=== PATIENT | male | born 1950 | race Caucasian/White ===

== ENCOUNTER → 2017-04-30 | Day surgery (SDC) | payer BC, MEDICARE ==
[2017-04-24 10:22] LABS: HEMATOCRIT 45.5 % (37.9-51.0); HEMOGLOBIN 15.6 g/dL (13.5-17.0); MEAN CORPUSCULAR HEMOGLOBIN 29.2 pg (27.0-33.4); MEAN CORPUSCULAR HGB CONC 34.2 g/dL (32.0-36.0); MEAN CORPUSCULAR VOLUME 85 fl (80-97); PLATELET COUNT 185 10^3/uL (150-450); RED BLOOD COUNT 5.34 10^6/uL (4.35-5.55); RED CELL DISTRIBUTION WIDTH 14.4 % (11.5-14.0); WHITE BLOOD COUNT 5.5 10^3/uL (4.0-10.5)
[2017-04-24 10:48] LABS: ANION GAP 11 (5-19); BLOOD UREA NITROGEN 22 mg/dL (7-20); CALCIUM 10.6 mg/dL (8.4-10.2); CARBON DIOXIDE 29 mmol/L (22-30); CHLORIDE 103 mmol/L (98-107); GLUCOSE 97 mg/dL (75-110); POTASSIUM 4.2 mmol/L (3.6-5.0); SODIUM 142.6 mmol/L (137-145)
--- NOTE | 2017-04-24 22:52 | EKG REPORT ---
SEVERITY:- ABNORMAL ECG - SINUS RHYTHM LEFT VENTRICULAR HYPERTROPHY : Confirmed by: Miguel Garza 24-Apr-2017 22:51:56
[~2017-04-30] MED LIST: ACETAMINOPHEN 100 ML IV ONE; BUPIVACAINE HCL 0.25 % INJ/PF (2.5 MG/1 ML) 30 ML VIAL ONE; CEFAZOLIN 1 GM/D5W RTU 1 GM/50 ML RTUPB IV PRN; DEXAMETHASONE SOD PHOSPHATE INJ 4 MG/1 ML VIAL ONE; DIPHENHYDRAMINE HCL 50 MG/ML VIAL IV PRN; EPHEDRINE SULFATE INJ 50 MG/1 ML AMPULE ONE; FENTANYL CITRATE INJ/PF 100 MCG/2 ML AMPUL IV PRN; FENTANYL CITRATE INJ/PF 250 MCG/5 ML AMPULE ONE; GLYCOPYRROLATE INJ 0.4 MG/2 ML VIAL ONE; KETOROLAC TROMETHAMINE 60 MG/2 ML SDV ONE; LACTATED RINGERS 1000 ML IV PRN; LIDOCAINE 0.5% INJ-PF (5 MG/ML) 50 ML SDV SUBCUT PRN; LIDOCAINE 2% INJ-PF (20 MG/ML) 2 ML AMPUL ONE; MEPERIDINE HCL/PF INJ 25 MG/1 ML DISP.SYRIN IV PRN; METOCLOPRAMIDE HCL INJ/PF 10 MG/2 ML SDV ONE; MIDAZOLAM 2 MG/2 ML INJ ONE; MORPHINE SULFATE 10 MG/ML INJ IV PRN; NEOSTIGMINE METHYLSULFATE 10 MG/10 ML VIAL ONE; ONDANSETRON HCL INJ/PF 4 MG/2 ML SDV IV PRN; ONDANSETRON HCL INJ/PF 4 MG/2 ML SDV ONE; OXYCODONE-ACETAMINOPHEN 5-325 MG TABLET PO PRN; PROMETHAZINE HCL INJ 25 MG/1 ML VIAL IV PRN; PROPOFOL INJ 200 MG/20 ML VIAL IV ONE; ROCURONIUM BROMIDE INJ 50 MG/5 ML VIAL IV ONE; SUCCINYLCHOLINE CHLORIDE INJ 200 MG/10 ML VIAL ONE
--- NOTE | 2017-04-30 11:28 | PDOC DISCHARGE SUMMARY ---
Discharge Summary (SDC) - Discharge Final Diagnosis: Umbilical hernia Date of Surgery: 04/30/17 Discharge Date: 04/30/17 Condition: Stable Treatment or Instructions: [facility] [address] [place] [id number] Discharge Instructions: Laparoscopic Surgery 1. General Information: a. DO NOT DRIVE a car or operate dangerous machinery for 3-4 days. b. DO NOT consume alcohol, tranquilizers, sleeping medications or any non- prescribed medications for 24 hours unless approved by your doctor or as long as taking narcotic prescription medications. c. DO NOT make important decisions or sign any important papers for the first 24 hours after surgery. d. When discharged home the same day of surgery have a responsible person with you for the first night. 2. Activity Restrictions:8 weeks. a. NO heavy lifting, straining abdominal muscles, bending over a lot, yard work, house work, or sports for 2 weeks. No lifting over 20lbs for [address] for 3-4 days. c. It is fine to go for walks, up and down steps, ride in a car. d. Elevate your head when sleeping/resting. 3. Treatment: a. You may shower 48 hours after surgery, no baths or swimming for 2 weeks. Remove band-aids or dressings before shower but leave paper strips (steri-strips ) on the skin to fall off on their own. If still on at postoperative visit they will be removed then. b. Drainage of fluid or blood is not unusual from an incision. If occurs, you can clean with peroxide and cotton ball daily and cover with dry gauze until the wound seals. c. If a lot of bleeding occurs, you can hold pressure with a gauze or cloth over the site for 10 minutes and it will usually stop. If bleeding continues you will need to call for possible evaluation in office or emergency room. 4. Medications: a. _Toradol__ may be taken for pain as needed, one tablet every 6 hours. S b. You should resume all normal medications unless a change is specified by your doctors. 5. Diet: Begin with clear liquids and may progress to your normal diet if not nauseated. No high fat, high protein foods the day of surgery. 6. The following may occur after laparoscopic surgery: a. Shoulder or upper back ache from retained gas that should resolve in 1-2 days b. Soreness and bruising at incision sites will resolve with time. c. Scrotal swelling (labia in women) and bruising is often seen after hernia surgery. d. Sore throat e. Fatigue may last days to weeks. f. Difficulty urinating may occur and may need to come into emergency room for urinary catheter placement. 7. Notify Physician If: a. Worsening or pain not improved with pain medication b. Persistent nausea and vomiting c. Fever above 101 d. Persistent bleeding or swelling at operative site e. Unable to urinate and uncomfortable bladder 6-8 hours after surgery 8..Follow Up Care: a. Schedule a follow up appointment with your doctor for 2 weeks. In the event of any postoperative problems or questions or you may call the office during business hours or the On-Call physician evenings and weekends at [facility]. [facility] I understand the instructions for my postoperative care as described above and a copy has been given to me. Patient/Significant Other Witness Date Prescriptions: Ketorolac Tromethamine [Toradol 10 mg Tablet] 10 mg PO Q6HP PRN #25 tablet PRN Reason: Referrals: COLLEEN WATERS MD [Primary Care Provider] - Discharge Activity: No Lifting Over 10 Pounds, No Lifting/Push/Pulling, Walk Frequently Report the Following to Your Physician Immediately: Nausea, Vomiting, Increase in Pain, Fever over 101 Degrees, Drainage-Foul Smelling
--- NOTE | 2017-04-30 11:30 | Operative Report ---
Operative Report DATE OF SURGERY: 04/30/17 PREOPERATIVE DIAGNOSIS: Umbilical hernia POSTOPERATIVE DIAGNOSIS: Same OPERATION: Laparoscopic primary closure of umbilical hernia with on-lay Parietex 9 cm polypropylene mesh reinforcement SURGEON: LAWRENCE OSWALD PARKING ASSISTANT: BHAKTI ENRIQUEZ ANESTHESIA: GA TISSUE REMOVED OR ALTERED: none COMPLICATIONS: none ESTIMATED BLOOD LOSS: scant INTRAOPERATIVE FINDINGS: see below PROCEDURE: The patient was taken to the operating room where general anesthesia was induced. Arms were abducted, the abdomen exposed, prepped and draped sterile fashion. Instrumentation set up for laparoscopic hernia repair the abdominal wall. Skin was anesthetized with 1% plain lidocaine. A stab was made in the left upper quadrant, Veress needle inserted the peritoneal cavity pneumoperitoneum was established. Veress needle was removed, and a 5 mm ports established and 5 mm viewing scope was established. There was some fatty tissue encountered at the end of the port. Eventually this was displaced, and 2 additional 5 mm ports were placed one on left lower quadrant and one in the right mid field. Checked back at our initial port site in the left upper quadrant and there is some bleeding from the omentum. This was carefully inspected by elevating the omentum from the underlying viscera. There was no evidence of visceral injury during entry by our laparoscopic inspection. We did place a 2 inch piece of Surgicel over the omentum, and the bleeding abated. Findings were still significant for a 3-1/2 cm diameter oblong shaped, vertically oriented hernia at the umbilicus. Small pieces of retroperitoneal fat were debrided from the hernia. These included portions of peritoneum. Once this was accomplished,, we elected to close the fascial defect transperitoneally in a vertically oriented direction. This was accomplished by making a small tova in the overlying umbilical skin with 11 blade, and using 0 PDS sutures, the fascia was closed with 3 [id number] transperitoneally placed sutures using the disposable suture passer. The knots were secured after taking tension off the anterior abdominal wall by desufflated the peritoneal cavity. We now reinforce the primary closure with a 9 cm Parietex Covidian polypropylene mesh. The mesh was check for expiration date, brought onto the field, affixed with stitches of #1 PDS at the 12, 3, 6 and 9 o'clock position. The mesh was moistened, rolled in thru the anterior abdominal wall and then unrolled and brought up to the anterior abdominal wall. Then using the disposable suture passer, the mesh was brought to the intra-abdominal wall. Mesh was secured by affixing knots in the subcutaneous tissue. We then came around with the absorbatack stapler and secured the mesh in the intervening areas. Photos were taken. We felt the operation was complete. We reinspected the omentum previously described at the beginning of the case and there was no evidence of mechanical bleeding. We felt the operation was complete. Sponge and needle counts correct. All ports removed under direct visualization, pneumoperitoneum evacuated, and wounds closed with 3-0 Vicryl suture Patient tolerated the procedure well, extubated, taken recovery in stable condition. The physician assistant tennis coach, Ms. Harris, provided assistance during this case by: Assisting and port insertion, retracting tissue, instillation of local anesthesia and closure of skin incisions.
[2017-04-30] MEDS: FENTANYL CITRATE INJ/PF 100 MCG/2 ML AMPUL ONE ×3 (11:40→11:50)
[2017-04-30 14:34] VITALS: BP 129/78
== END ==
LOC: OROUT 07:49
PROVIDERS: ATTEND Surgery
PROC: 0WUF4JZ Supplement Abdominal Wall with Synthetic Substitute, Percutaneous Endoscopic Approach (ICD-10-PCS; principal; 2017-04-30 10:30)
DX: K42.9 Umbilical hernia without obstruction or gangrene (principal); I10 Essential (primary) hypertension; M10.9 Gout, unspecified; M19.90 Unspecified osteoarthritis, unspecified site; Z79.899 Other long term (current) drug therapy; Z87.442 Personal history of urinary calculi
CPT/HCPCS: 49652; 93005; 36415; 85027; 80048; 93010; C1781; J2250; J0690; J3490 ×3; J1100; J1885; J3010 ×2; J2765; J0330; J2405; J2704; J0131; 750